=== PATIENT | female | born 1995 ===

== ENCOUNTER 2018-02-06 12:04 | Emergency (ER) | payer MEDICAID ==
[~2018-02-06] VITALS: Ht 175.3 cm; Wt 70.5 kg
[2018-02-06 12:32] VITALS: BP 109/58
[2018-02-06 13:07] LABS: URINE HCG NEGATIVE (NEG)
[2018-02-06 13:28] LABS: CLARITY,URINE CLOUDY (Clear); COLOR,URINE AMBER (Yellow); GLUCOSE, URINE NEGATIVE (Neg); KETONES,URINE 40 mg/dl (Neg); LEUKOCYTE ESTERASE ,URINE TRACE (Neg); NITRITES, URINE NEGATIVE (Neg); OCCULT BLOOD,URINE LARGE (Neg); PH,URINE 5.5 (4.8-8.0); PROTEIN,URINE 100 mg/dl (Neg); UROBILINOGEN,URINE 0.2 E.U/dL (0.2-1.0)
[2018-02-06 13:31] LABS: UA COLLECTION TYPE CLN CATCH MIDSTREAM
[2018-02-06 13:34] LABS: BACTERIA,URINE 3+ /HPF (Neg); MUCUS STRANDS MODERATE /LPF (Neg); RBC,URINE TNTC /HPF (0-2); SQUAMOUS EPITHELIAL CELL,UR MANY /LPF (FEW)
[2018-02-06] MEDS ORDERED: CefTRIAXone 250MG IM Kit w/LIDOcaine IM ONE (15:00)
[2018-02-06] MEDS ORDERED: azithromycin 250mg tablet PO ONE (15:00)
[2018-02-06] MEDS ORDERED: SULF1TAB48 PO (15:01)
== END 2018-02-06 15:25 | disposition home or self-care (01) ==
LOC: ER 12:05
DX: R10.2 Pelvic and perineal pain (principal); N39.0 Urinary tract infection, site not specified
CPT/HCPCS: 36415; 81001; 81025; 87491; 87591; 96372; 99284; J0696